=== PATIENT | female | born 1940 | race Caucasian/White ===

== ENCOUNTER → 2017-04-02 | Outpatient (CLI) | payer MEDICARE, BC ==
[~2017-04-02] MED LIST: ALLEGRA; AMLO5 PO; AMLODIPINE; ASCO500 PO; ASPI325 PO; ASPIRIN; CLIN300 PO; COUMADIN; DIAZ5 PO; DIAZEPAM; DONE5 PO; ERGO400 PO; FISH1000 PO; FLUT.05NI; FURO40 PO; LATANOPROST; LEVSOD50; LEVSOD50 PO; LISI20 PO; MECL25 PO; MELA3 PO; MULTIVITAMIN; MULVITMIND PO; NEBI10 PO; OMEP20ER; ONDA4 PO; ONDA4ODT MM; SPIRONOLACTONE; WARF2.5 PO; WARF5 PO; ZOFRAN; Zestril PO; [UNRECOGNIZED DRUG - OTHER]; [UNRECOGNIZED DRUG - REMARK]
[2017-04-04 04:42] LABS: Source ENDOCERV/CERV
== END | disposition home or self-care (01) ==
LOC: LAB 14:30
PROVIDERS: Family Medicine
DX: Z12.4 Encounter for screening for malignant neoplasm of cervix (principal)
CPT/HCPCS: G0145

== ENCOUNTER → 2017-09-15 | Outpatient (CLI) | payer MEDICARE, BC | END | disposition home or self-care (01) | LOC: PLD 14:45 → LAB SHORT 14:45 | DX: L90.0 Lichen sclerosus et atrophicus (principal) | CPT/HCPCS: 88305 ==

== ENCOUNTER → 2018-08-04 | Outpatient (CLI) | payer MEDICARE, BC | END | disposition home or self-care (01) | LOC: LAB 19:32 → LAB SHORT 19:32 | PROVIDERS: Family Medicine | DX: Z12.72 Encounter for screening for malignant neoplasm of vagina (principal); Z90.710 Acquired absence of both cervix and uterus | CPT/HCPCS: G0145 ==

== ENCOUNTER → 2019-10-05 | Outpatient (CLI) | payer MEDICARE, BC ==
[~2019-10-05] MED LIST changes: +ACET325 PO; +ALLEGRA ALLERG180 MG PO; +ASPI81CH PO; +Acerola C500 MG PO; -COUMADIN; +COUMADIN PO; +Coumadin5 MG PO; +DIAZ5; +DONEPEZIL HCL10 MG PO; +EUTHYROX50 MCG PO; +FISH OIL PO; -LEVSOD50; +MEMA10 PO; +MOTION RELIEF25 MG PO; -MULTIVITAMIN; +MULTIVITAMIN PO; +Mupirocin22 GM TOP; +Norvasc2.5 MG PO; +Percocet 5-3251 EACH PO; +SPIR25 PO; +VITAMIN D31000 UNI2 PO; +WARF2.5
== END | disposition home or self-care (01) ==
LOC: LAB 18:48 → LAB SHORT 18:48
PROVIDERS: Family Medicine
DX: Z12.4 Encounter for screening for malignant neoplasm of cervix (principal)
CPT/HCPCS: G0123

== ENCOUNTER 2019-10-12 06:07 | Day surgery (SDC) | payer MEDICARE, BC ==
[~2019-10-12] VITALS: Ht 170.2 cm; Wt 71.4 kg
[~2019-10-12 06:07] MED LIST changes: -Mupirocin22 GM TOP; -Percocet 5-3251 EACH PO
--- NOTE | 2019-10-12 07:16 | NUR ---
History, Chart, Medications and Allergies reviewed before start of procedure. Patient confirms NPO status and agrees with scheduled surgery. Lungs clear T/O to Auscultation. Patient mentions that she filled out a POST with Dr. Oneill about a week ago. She states she is comfortable proceeding with surgery without it on the chart. Offered to have Dr. Hazel return and speak to her about the contents of the POLST, and she states she does not need him to do that.
--- NOTE | 2019-10-12 07:33 | NUR ---
Patient reported using Chlorhexidine shower x5 prior to coming to hospital.
[2019-10-12] MEDS ORDERED: Mupirocin22 GM TOP (07:34)
--- NOTE | 2019-10-12 07:56 | NUR ---
0720- SHAUNA NASAL CLINICAL APPEALS RN X3 AMPULES USED TO BILAT NARES.
--- NOTE | 2019-10-12 11:31 | NUR ---
PT ARRIVED TO UNIT AT APROX 1100 FROM PACU. ABLE TO WIGGLE TOES ON R FOOT, GROSS MVMT IN LLE. DENIES PAIN AT THIS TIME. AQUACEL DRESSING C/D/I.
--- NOTE | 2019-10-12 18:15 | NUR ---
SHIFT SUMMARY PT POD 0 L MARTIN. AQUACEL DRESSING C/D/I ON L HIP, POLAR PACK IN PLACE. PT UP WITH TERAPY AND TO CHAIR. PAIN MANAGED PER EMAR. SALINE LOCKED PT IS TOLERATING PO WITH NO N/V. VOIDING. PLAN TO DC HOME TOMORROW IF PASSES THERAPY.
--- NOTE | 2019-10-13 04:47 | NUR ---
SHIFT SUMMARY POD 1 S/P LEFT MARTIN, AQUACEL DRESSING C/D/I. IS A/OX4 WITH VSS. POLAR PACK, SCD'S AND TEDS IN PLACE. AMB IN ROOM AND HALLWAYS WITH SBA/FWW/GB. VOIDING WITHOUT DIFFICULTY. NUPUR PO INTAKE, DENIES N/V. ABX INFUSED PER ORDERS. PAIN MANAGED WITH PO MEDICATION, TORADOL, AND REPOSITIONING. PT IS CURRENTLY RESTING IN BED WITH CALL LIGHT IN REACH. WILL CONT TO MONITOR AND GIVE REPORT TO ONCOMING RN. PLAN TO WORK WITH THERAPY AND POSSIBLE DISCHARGE TODAY.
[2019-10-13 05:55] LABS: BASOPHILS ABSOLUTE AUTO 0.02 K/mm3 (0.00-0.23); BASOPHILS PERCENT AUTO 0 % (0-2); EOSINOPHILS PERCENT AUTO 0 % (0-6); Hematocrit 28.6 % (33.0-51.0); Hemoglobin 9.4 g/dL (11.5-16.0); IMMATURE GRAN ABSOLUTE AUTO 0.06 K/mm3 (0.00-0.10); IMMATURE GRAN PERCENT AUTO 1 % (0-1); LYMPHOCYTES ABSOLUTE AUTO 1.33 K/mm3 (0.84-5.20); LYMPHOCYTES PERCENT AUTO 12 % (21-46); MONOCYTES PERCENT AUTO 10 % (4-13); Mean Corpuscular HGB Conc 32.9 g/dL (31.5-36.5); Mean Corpuscular Volume 97 fL (80-100); Mean Platelet Volume 9.9 fL (9.1-12.4); NEUTROPHILS ABSOLUTE AUTO 8.92 K/mm3 (1.96-9.15); NEUTROPHILS PERCENT AUTO 78 % (41-73); Platelet Count 155 K/mm3 (150-400); RDW Coefficient Variation 13.1 % (11.7-14.2); Red Blood Cell Count 2.94 M/mm3 (3.80-5.20); White Blood Cell Count 11.43 K/mm3 (4.00-11.30)
[2019-10-13 06:10] LABS: Bun/Creatinine Ratio 29.7 (12.0-20.0); Calcium, Blood 8.3 mg/dL (8.5-10.1); Creatinine, Blood 1.11 mg/dL (0.40-1.00); Potassium, Blood 4.6 mmol/L (3.5-5.5)
[2019-10-13] MEDS ORDERED: Percocet 5-3251 EACH PO (09:13)
--- NOTE | 2019-10-13 10:50 | NUR ---
PHYSICAL THERAPY WORKED WITH PT, REPORTS CLEAR TO GO HOME.
--- NOTE | 2019-10-13 10:55 | NUR ---
PT REPORTS EATING AND DRINKING, VOIDING, PASSING GAS. PT REPORTS NAUSEA DOING BETTER, REPORTS FAMILY STAYING WITH PT. REPORTS HAVING APPR EQUIPMENT AT HOME.
--- NOTE | 2019-10-13 11:07 | NUR ---
DISCHARGE- instructions and medications reviewed with patient and daughter. Questions answered, dressing provided, assisted to car via wc by Fabian GARCIA
--- NOTE | 2019-10-14 13:40 | NUR ---
10/14/19 1340 Sherri Kuo VERIFICATIONS: EDIT CHART.
== END 2019-10-13 11:12 | disposition home or self-care (01) ==
LOC: ORSCMMR 06:07 → PRE IP 07:30 → EDSTATUS 07:30 → SURS 10:46 → ORSCMMR 10-13 11:12
PROVIDERS: Orthopaedic Surgery
PROC: 8E0Y0CZ Robotic Assisted Procedure of Lower Extremity, Open Approach (ICD-10-PCS; 2019-10-12)
PROC: 0SRB0J9 Replacement of Left Hip Joint with Synthetic Substitute, Cemented, Open Approach (ICD-10-PCS; principal; 2019-10-12 07:30)
DX: M16.12 Unilateral primary osteoarthritis, left hip (principal); I10 Essential (primary) hypertension; I48.91 Unspecified atrial fibrillation; Z79.01 Long term (current) use of anticoagulants; I25.10 Atherosclerotic heart disease of native coronary artery without angina pectoris; E03.9 Hypothyroidism, unspecified; Z79.899 Other long term (current) drug therapy
CPT/HCPCS: 27130; S2900; 36415; 72170; 80048; 85025; 88300; 97110; 97116; 97162; 97530; A9270-GY; C1713; C1776; J0171; J0690; J0735; J1100; J1885; J2370; J2405; J2704; J2795; J3010; J7120

== ENCOUNTER → 2019-12-20 | Outpatient (CLI) | payer MEDICARE, BC ==
[~2019-12-20] MED LIST changes: +Mupirocin22 GM TOP; +Percocet 5-3251 EACH PO
== END | disposition home or self-care (01) ==
LOC: PLD 07:35 → LAB SHORT 07:35
DX: L01.02 Bockhart's impetigo (principal)
CPT/HCPCS: 88305

== ENCOUNTER → 2020-08-07 | Outpatient (CLI) | payer MEDICARE, BC ==
[~2020-08-07] MED LIST changes: +SULFAMETHOXAZO1 EAC1 PO
== END | disposition home or self-care (01) ==
LOC: LAB 17:00 → LAB SHORT 17:00
DX: N39.0 Urinary tract infection, site not specified (principal)
CPT/HCPCS: 87086

== ENCOUNTER 2020-09-30 08:42 | Emergency (ER) | payer MEDICARE, BC ==
[~2020-09-30] VITALS: Ht 170.2 cm; Wt 68.5 kg
[~2020-09-30 08:42] MED LIST changes: -SULFAMETHOXAZO1 EAC1 PO
[2020-09-30] MEDS ORDERED: SULFAMETHOXAZO1 EAC1 PO (08:57)
[2020-09-30 09:00] LABS: BASOPHILS ABSOLUTE AUTO 0.03 K/mm3 (0.00-0.23); BASOPHILS PERCENT AUTO 1 % (0-2); EOSINOPHILS ABSOLUTE AUTO 0.05 K/mm3 (0.00-0.68); EOSINOPHILS PERCENT AUTO 1 % (0-6); Hematocrit 40.4 % (33.0-51.0); Hemoglobin 13.4 g/dL (11.5-16.0); IMMATURE GRAN ABSOLUTE AUTO 0.01 K/mm3 (0.00-0.10); IMMATURE GRAN PERCENT AUTO 0 % (0-1); LYMPHOCYTES ABSOLUTE AUTO 1.21 K/mm3 (0.84-5.20); LYMPHOCYTES PERCENT AUTO 21 % (21-46); MONOCYTES ABSOLUTE AUTO 0.42 K/mm3 (0.16-1.47); MONOCYTES PERCENT AUTO 7 % (4-13); Mean Corpuscular HGB 32.1 pg (26.0-34.0); Mean Corpuscular HGB Conc 33.2 g/dL (31.5-36.5); Mean Corpuscular Volume 97 fL (80-100); Mean Platelet Volume 9.9 fL (9.1-12.4); NEUTROPHILS ABSOLUTE AUTO 4.12 K/mm3 (1.96-9.15); NEUTROPHILS PERCENT AUTO 71 % (41-73); Platelet Count 209 K/mm3 (150-400); RDW Coefficient Variation 13.3 % (11.7-14.2); RDW Standard Deviation 48.1 fL (35.1-46.3); Red Blood Cell Count 4.17 M/mm3 (3.80-5.20); White Blood Cell Count 5.84 K/mm3 (4.00-11.30)
[2020-09-30 09:17] LABS: Albumin, Blood 3.6 g/dL (3.4-5.0); Bilirubin, Total 0.2 mg/dL (0.1-1.0); Bun/Creatinine Ratio 24.6 (12.0-20.0); Calcium, Blood 8.8 mg/dL (8.5-10.1); Creatinine, Blood 1.34 mg/dL (0.40-1.00); Globulin, Blood 3.7 g/dL (2.2-4.0); Potassium, Blood 4.5 mmol/L (3.5-5.5); Total Protein, Blood 7.3 g/dL (6.4-8.2)
[2020-09-30 09:43] LABS: Source, Urine Clean Catch
[2020-09-30 09:50] LABS: Appearance, Urine Clear (Clear); Bilirubin, Urine Neg (Neg); Blood, Urine Neg (Neg); Color, Urine Yellow (P-Yellow); Glucose Qualitative, Urine 2+ (Neg); Ketones, Urine Neg (Neg); Leukocyte Esterase, Urine Neg (Neg); Nitrite, Urine Neg (Neg); Protein, Urine 1+ (Neg); Urobilinogen, Urine NORM (Normal)
[2020-09-30] MEDS ORDERED: ONDA4ODT MM (10:57)
== END 2020-09-30 11:05 | disposition home or self-care (01) ==
LOC: ER 08:42
PROVIDERS: Emergency Medicine
DX: R42 Dizziness and giddiness (principal); Z79.01 Long term (current) use of anticoagulants; Z88.5 Allergy status to narcotic agent; Z91.09 Other allergy status, other than to drugs and biological substances; Z88.1 Allergy status to other antibiotic agents; Z79.899 Other long term (current) drug therapy
CPT/HCPCS: 36415; 80053; 85025; 93005; 93010; 96374; 99284-25; A9270; J2405; J7030

== ENCOUNTER → 2020-10-11 | Outpatient (CLI) | payer MEDICARE, BC ==
[~2020-10-11] MED LIST changes: +SULFAMETHOXAZO1 EAC1 PO
== END | disposition home or self-care (01) ==
LOC: LAB SHORT 16:10 → LAB 16:10
DX: N39.0 Urinary tract infection, site not specified (principal)
CPT/HCPCS: 87077; 87086; 87186

== ENCOUNTER → 2020-10-27 | Outpatient (CLI) | payer MEDICARE, BC ==
[2020-10-27 18:55] LABS: Appearance, Urine Clear (Clear); Bilirubin, Urine Neg (Neg); Blood, Urine Neg (Neg); Color, Urine Yellow (P-Yellow); Glucose Qualitative, Urine Neg (Neg); Ketones, Urine Neg (Neg); Leukocyte Esterase, Urine 1+ (Neg); Nitrite, Urine Neg (Neg); Protein, Urine 2+ (Neg); Urobilinogen, Urine NORM (Normal)
[2020-10-27 19:18] LABS: Bacteria Mod /hpf; Red Blood Cells, Urine Not Seen /hpf (0-2); Squamous Epithelial Cells Few /hpf (Few)
== END ==
LOC: LAB 17:45 → LAB SHORT 17:45
PROVIDERS: Family Medicine
DX: N39.0 Urinary tract infection, site not specified (principal); Z88.6 Allergy status to analgesic agent; Z88.5 Allergy status to narcotic agent; Z88.1 Allergy status to other antibiotic agents; Z91.048 Other nonmedicinal substance allergy status; Z88.8 Allergy status to other drugs, medicaments and biological substances
CPT/HCPCS: 81001; 87086

== ENCOUNTER → 2020-10-30 | Outpatient (CLI) | payer MEDICARE, BC ==
[2020-10-30 12:00] LABS: Bilirubin, Urine Neg (Neg); Blood, Urine Neg (Neg); Glucose Qualitative, Urine Neg (Neg); Ketones, Urine Neg (Neg); Leukocyte Esterase, Urine Neg (Neg); Nitrite, Urine Neg (Neg); Protein, Urine Neg (Neg); Urobilinogen, Urine NORM (Normal)
[2020-10-30 12:26] LABS: Appearance, Urine Clear (Clear); Color, Urine Yellow (P-Yellow)
== END | disposition home or self-care (01) ==
LOC: LAB 09:35 → LAB SHORT 09:35
PROVIDERS: Family Medicine
DX: N39.0 Urinary tract infection, site not specified (principal)
CPT/HCPCS: 81003

== ENCOUNTER 2021-04-02 03:10 | Observation (INO) | payer MEDICARE, BC ==
[~2021-04-02] VITALS: Ht 170.2 cm; Wt 71.9 kg
[~2021-04-02 03:10] MED LIST changes: -ASPI81CH PO; +ASPIR 8181 M1 PO; -Norvasc2.5 MG PO
[2021-04-02 03:34] LABS: BASOPHILS ABSOLUTE AUTO 0.04 K/mm3 (0.00-0.23); BASOPHILS PERCENT AUTO 1 % (0-2); EOSINOPHILS ABSOLUTE AUTO 0.15 K/mm3 (0.00-0.68); EOSINOPHILS PERCENT AUTO 2 % (0-6); Hematocrit 40.4 % (33.0-51.0); Hemoglobin 13.6 g/dL (11.5-16.0); IMMATURE GRAN ABSOLUTE AUTO 0.02 K/mm3 (0.00-0.10); IMMATURE GRAN PERCENT AUTO 0 % (0-1); LYMPHOCYTES ABSOLUTE AUTO 2.66 K/mm3 (0.84-5.20); LYMPHOCYTES PERCENT AUTO 40 % (21-46); MONOCYTES ABSOLUTE AUTO 0.71 K/mm3 (0.16-1.47); MONOCYTES PERCENT AUTO 11 % (4-13); Mean Corpuscular HGB 31.8 pg (26.0-34.0); Mean Corpuscular HGB Conc 33.7 g/dL (31.5-36.5); Mean Corpuscular Volume 94 fL (80-100); Mean Platelet Volume 10.2 fL (9.1-12.4); NEUTROPHILS ABSOLUTE AUTO 3.04 K/mm3 (1.96-9.15); NEUTROPHILS PERCENT AUTO 46 % (41-73); Platelet Count 222 K/mm3 (150-400); RDW Coefficient Variation 12.9 % (11.7-14.2); RDW Standard Deviation 44.7 fL (35.1-46.3); Red Blood Cell Count 4.28 M/mm3 (3.80-5.20); White Blood Cell Count 6.62 K/mm3 (4.00-11.30)
[2021-04-02 03:57] LABS: Alanine Aminotransfer (ALT/SGP 26 U/L (12-78); Albumin, Blood 3.6 g/dL (3.4-5.0); Albumin/Globulin Ratio 0.9 (0.8-1.8); Alk Phos 83 U/L (50-136); Anion Gap 3 mmol/L (6-16); Aspartate Aminotrans (AST/SGOT 16 U/L (12-37); Bilirubin, Total 0.5 mg/dL (0.1-1.0); Blood Urea Nitrogen 23 mg/dL (8-24); Bun/Creatinine Ratio 24.9 (12.0-20.0); CO2, Blood 29 mmol/L (21-32); Calcium, Blood 9.1 mg/dL (8.5-10.1); Chloride, Blood 109 mmol/L (98-108); Creatinine, Blood 0.92 mg/dL (0.40-1.00); Globulin, Blood 3.8 g/dL (2.2-4.0); Glomerular Filtration Rate 58 (60-); Glucose, Blood 104 mg/dL (70-99); Potassium, Blood 4.1 mmol/L (3.5-5.5); Sodium, Blood 141 mmol/L (136-145); Total Protein, Blood 7.4 g/dL (6.4-8.2); Troponin I <0.015 ng/mL (0.000-0.040)
[2021-04-02 04:18] LABS: International Normalized Ratio 1.97; Prothrombin Time Results 19.8 Sec (9.7-11.5)
[2021-04-02 07:06] LABS: Source, Urine Clean Catch
[2021-04-02 07:13] LABS: Appearance, Urine Clear (Clear); Bilirubin, Urine Neg (Neg); Blood, Urine Neg (Neg); Color, Urine Yellow (P-Yellow); Glucose Qualitative, Urine Neg (Neg); Ketones, Urine Neg (Neg); Leukocyte Esterase, Urine Neg (Neg); Nitrite, Urine Neg (Neg); Protein, Urine Neg (Neg); Urobilinogen, Urine NORM (Normal)
[2021-04-02 11:52] LABS: CPK Creatine Kinase 96 U/L (26-193); Troponin I <0.015 ng/mL (0.000-0.040)
[2021-04-02] MEDS ORDERED: LATANOPROST 0.7.5 M3 BOTHEYES (14:42)
[2021-04-02] MEDS ORDERED: OMEP20ER PO (14:42)
[2021-04-02] MEDS ORDERED: TIMO.5OPSO BOTHEYES (14:45)
--- NOTE | 2021-04-02 14:45 | NUR ---
ADMIT PT ORIENTED TO ROOM. CALL LIGHT IN REACH. CHAIR ALARM PLACED UNDER PT WHILE UP IN CHAIR. TELE IN PLACE. WATER PROVIDED. PT DENIES NEEDS AT THIS TIME. DR. PETTY NOTIFIED OF 07/08 CHEST PAIN.
[2021-04-02] MEDS ORDERED: OMEGA-3 FISH O1 EAC6 PO (14:46)
[2021-04-02] MEDS ORDERED: Vitamin B Comple1 EA PO (14:47)
[2021-04-02] MEDS ORDERED: CENTRUM SILVER1 EAC2 PO (14:49)
[2021-04-02] MEDS ORDERED: MELO7.5 PO (14:49)
--- NOTE | 2021-04-02 16:53 | NUR ---
SHIFT SUMARY DNR BAND PLACED TO L WRIST. VERIFIED WITH DELMI Branch RN. TELE RUNNING AFIB WITH PVC'S. RATE IN THE MID 40S TO MID 50S. DR. PETTY NOTIFIED OF BRADYCARDIA AND PARMAETERS WERE ADDED TO COREG ORDER. PT RESTING IN BED. CALL LIGHT IN REACH. DENIES ANY NEEDS AT THIS TIME. CALL LIGHT IN REACH. NO OTHER CHANGES IN ASSESSMENT SINCE ADMIT.
[2021-04-02 19:30] LABS: CPK Creatine Kinase 92 U/L (26-193); Troponin I <0.015 ng/mL (0.000-0.040)
--- NOTE | 2021-04-03 00:08 | NUR ---
PER NEEDLE BOARD REPAIRER THE PATIENTS HR WENT DOWN TO 37 BPM THE REBOUNDED BACK TO THE HIGH 40'S. WENT IN TO ASSESS THE PATIENT SHE AWAKEN EASILY AND IS ORIENTED. REPORTS NO PAIN OR SOA. WILL CONTINUE TO MONITOR.
--- NOTE | 2021-04-03 05:36 | NUR ---
PATIENT HAS HAD AN UNEVENTFUL NIGHT. SHE SELF AMBUALATED TO THE RESTROOM TWICE. PER TELEMETRY THE PATIENT HAD THREE TIMES WHEN SHE WAS MAGAN @37 THEN CAME BACK UP. pATIENT WAS CHECKED ON AND WAS EASY TO AROUSE AND ALERT. PATIENT HAS BEEN NPO SINCE MIDNIGHT. PATIENT IS ALERT AND ORIENTED ABLE TO MAKE NEEDS KNOW. VERBALIZED NO QUESTIONS OR CONCERNS. VITALS TEVIEWED. CALL LIGHT IN REACH.
[2021-04-03 06:07] LABS: Magnesium, Blood 2.2 mg/dL (1.6-2.4)
[2021-04-03 06:08] LABS: Albumin, Blood 3.3 g/dL (3.4-5.0); Albumin/Globulin Ratio 0.8 (0.8-1.8); Bilirubin, Total 0.6 mg/dL (0.1-1.0); Bun/Creatinine Ratio 25.1 (12.0-20.0); Calcium, Blood 9.2 mg/dL (8.5-10.1); Creatinine, Blood 0.96 mg/dL (0.40-1.00); Globulin, Blood 3.9 g/dL (2.2-4.0); Potassium, Blood 4.5 mmol/L (3.5-5.5); Total Protein, Blood 7.2 g/dL (6.4-8.2)
[2021-04-03 06:14] LABS: BASOPHILS ABSOLUTE AUTO 0.04 K/mm3 (0.00-0.23); BASOPHILS PERCENT AUTO 1 % (0-2); EOSINOPHILS ABSOLUTE AUTO 0.15 K/mm3 (0.00-0.68); EOSINOPHILS PERCENT AUTO 3 % (0-6); Hematocrit 44.6 % (33.0-51.0); Hemoglobin 14.9 g/dL (11.5-16.0); IMMATURE GRAN ABSOLUTE AUTO 0.02 K/mm3 (0.00-0.10); IMMATURE GRAN PERCENT AUTO 0 % (0-1); LYMPHOCYTES ABSOLUTE AUTO 2.28 K/mm3 (0.84-5.20); LYMPHOCYTES PERCENT AUTO 38 % (21-46); MONOCYTES PERCENT AUTO 10 % (4-13); Mean Corpuscular HGB 31.4 pg (26.0-34.0); Mean Corpuscular HGB Conc 33.4 g/dL (31.5-36.5); Mean Corpuscular Volume 94 fL (80-100); Mean Platelet Volume 10.4 fL (9.1-12.4); NEUTROPHILS ABSOLUTE AUTO 2.93 K/mm3 (1.96-9.15); NEUTROPHILS PERCENT AUTO 49 % (41-73); Platelet Count 171 K/mm3 (150-400); RDW Coefficient Variation 12.9 % (11.7-14.2); RDW Standard Deviation 44.8 fL (35.1-46.3); Red Blood Cell Count 4.75 M/mm3 (3.80-5.20); White Blood Cell Count 6.02 K/mm3 (4.00-11.30)
[2021-04-03 06:40] LABS: International Normalized Ratio 1.98; Prothrombin Time Results 19.9 Sec (9.7-11.5)
--- NOTE | 2021-04-03 16:37 | NUR ---
SHIFT SUMMARY PT IS AOX4. PT DENIES PAIN, N/V, SOB. PT HAD RESTING PORTION OF STRESS TEST TODAY AND PART TWO WILL BE TOMORROW. PT APPETITE IS GOOD. PT DENIES CP. PT DID NOT HAVE VISITORS THIS SHIFT. PT REMAINS INDEPENDENT IN ROOM. PT IS IN BED, CALL LIGHT IN REACH, LOW POSITION.
--- NOTE | 2021-04-04 05:14 | NUR ---
PATIENT FINALLY WAS ABLE TO SETTLE DOWN AND REST AFTER BEING CONCERNED OVER DC PLAN. Q2 HR TURNS AND CHANGES COMPLETED. PATIENT A&O AND MAKES NEEDS KNOWN. VITALS REVIEWED. CALL LIGHT IN REACH,
--- NOTE | 2021-04-04 05:20 | NUR ---
PATIENT HAD AN UNEVENTFUL NIGHT. NO REPORTS OF CHEST PAIN OR DISCOMFORT. ABULATED INDEPENDENTLY TO THE RESTROOM OVER NIGHT. TELEMETRY IN PLACE PT HAS BEEN AFIB IN 50-60'S. NPO SINCE MIDNIGHT FOR STRESS TEST THIS AM. VITALS REVIEWED. CALL LIGHT IN REACH.
[2021-04-04 05:23] LABS: BASOPHILS ABSOLUTE AUTO 0.04 K/mm3 (0.00-0.23); BASOPHILS PERCENT AUTO 1 % (0-2); EOSINOPHILS ABSOLUTE AUTO 0.21 K/mm3 (0.00-0.68); EOSINOPHILS PERCENT AUTO 4 % (0-6); Hemoglobin 13.3 g/dL (11.5-16.0); IMMATURE GRAN ABSOLUTE AUTO 0.01 K/mm3 (0.00-0.10); IMMATURE GRAN PERCENT AUTO 0 % (0-1); LYMPHOCYTES ABSOLUTE AUTO 2.26 K/mm3 (0.84-5.20); LYMPHOCYTES PERCENT AUTO 38 % (21-46); MONOCYTES PERCENT AUTO 12 % (4-13); Mean Corpuscular HGB 31.1 pg (26.0-34.0); Mean Corpuscular HGB Conc 33.3 g/dL (31.5-36.5); Mean Corpuscular Volume 94 fL (80-100); NEUTROPHILS ABSOLUTE AUTO 2.77 K/mm3 (1.96-9.15); NEUTROPHILS PERCENT AUTO 46 % (41-73); Platelet Count 205 K/mm3 (150-400); RDW Coefficient Variation 12.8 % (11.7-14.2); Red Blood Cell Count 4.27 M/mm3 (3.80-5.20); White Blood Cell Count 5.99 K/mm3 (4.00-11.30)
[2021-04-04 05:44] LABS: International Normalized Ratio 2.1
[2021-04-04 05:56] LABS: Albumin, Blood 3.1 g/dL (3.4-5.0); Anion Gap 5 mmol/L (6-16); Blood Urea Nitrogen 27 mg/dL (8-24); Bun/Creatinine Ratio 31.7 (12.0-20.0); CO2, Blood 26 mmol/L (21-32); Calcium, Blood 9.1 mg/dL (8.5-10.1); Chloride, Blood 109 mmol/L (98-108); Creatinine, Blood 0.85 mg/dL (0.40-1.00); Glomerular Filtration Rate >60 (60-); Glucose, Blood 94 mg/dL (70-99); Phosphorus, Blood 3.7 mg/dL (2.5-4.9); Potassium, Blood 4.5 mmol/L (3.5-5.5); Sodium, Blood 140 mmol/L (136-145)
[2021-04-04] MEDS ORDERED: NITR.4SL SL (15:23)
--- NOTE | 2021-04-04 15:43 | NUR ---
Per Chart Review with Dr. Barros, patient appropriate for discharge home to [facility]. Patient feels safe to discharge home and denies barriers. A hospital follow up is scheduled for tomorrow with Dr. Rivera. Patient aware of appointment date and time. Patient's son to provide discharge transport back to [facility]. Patient's discharge order and discharge med rec faxed to [facility]'s RN Jeanne Short.
--- NOTE | 2021-04-04 16:52 | NUR ---
DISCHARGE NOTE PT IS AOX4. PT DRESSED SELF IN HOME CLOTHING AND GATHERED BELONGINGS FROM ROOM. DC INSTRUCTIONS AND MEDICATIONS REVIEWED WITH PT WHO VERBALIZED UNDERSTANDING. [facility] TO CALL PT FOR FOLLOW-UP APPOINTMENT. PT HAS CARDIOLOGY APPOINTMENT SCHEDULED FOR 05/03/21 @8AM WITH CARDIOLOGY OFFICE ATTEMPTING TO SCHEDULE EARLIER APPOINTMENT. PT WALKED OFF UNIT WITH SON. PAPERWORK SENT WITH PT TO GIVE TO [facility] STAFF INCLUDING MEDICATIONS AND DC INSTRUCTIONS. PT LEFT TO PRIVATE VEHICLE WITH FAMILY AND BELONGINGS PRESENT.
== END 2021-04-04 16:40 | disposition home or self-care (01) ==
LOC: ER 03:10 → ERHOLD 03:11 → MEDS 14:21
PROVIDERS: Emergency Medicine; Family Medicine; Hospitalist; ADMIT Internal Medicine
DX: R07.9 Chest pain, unspecified (principal); I48.20 Chronic atrial fibrillation, unspecified; I11.9 Hypertensive heart disease without heart failure; E03.9 Hypothyroidism, unspecified; N39.0 Urinary tract infection, site not specified; N28.1 Cyst of kidney, acquired; H40.9 Unspecified glaucoma; R06.00 Dyspnea, unspecified; I34.0 Nonrheumatic mitral (valve) insufficiency; I49.3 Ventricular premature depolarization; Z79.01 Long term (current) use of anticoagulants; Z88.5 Allergy status to narcotic agent; Z88.8 Allergy status to other drugs, medicaments and biological substances; Z91.09 Other allergy status, other than to drugs and biological substances; Z90.3 Acquired absence of stomach [part of]
CPT/HCPCS: 36415; 71045; 76770; 78452; 80053; 80069; 81003; 82550; 83735; 83880; 84484; 85025; 85610; 85730; 93005; 93010; 93017; 93308; 94760; 96372; 99285; A9270; A9500; G0378; J0706; J1650; J2785; J7030

== ENCOUNTER → 2021-04-05 | Outpatient (CLI) | payer MEDICARE, BC ==
[~2021-04-05] MED LIST changes: +CENTRUM SILVER1 EAC2 PO; +LATANOPROST 0.7.5 M3 BOTHEYES; +MELO7.5 PO; +NITR.4SL SL; +OMEGA-3 FISH O1 EAC6 PO; +OMEP20ER PO; +TIMO.5OPSO BOTHEYES; +Vitamin B Comple1 EA PO
[2021-04-05 13:22] LABS: Appearance, Urine Hazy (Clear); Bilirubin, Urine Neg (Neg); Blood, Urine 1+ (Neg); Color, Urine Yellow (P-Yellow); Glucose Qualitative, Urine Neg (Neg); Ketones, Urine Neg (Neg); Leukocyte Esterase, Urine 2+ (Neg); Nitrite, Urine Neg (Neg); Protein, Urine 3+ (Neg); Specific Gravity, Urine 1.025 (1.003-1.022); Urobilinogen, Urine NORM (Normal)
[2021-04-05 13:43] LABS: Bacteria Few /hpf; Mucus Heavy (0-Heavy); Squamous Epithelial Cells Few /hpf (Few)
[2021-04-05 13:44] LABS: Granular Casts 0-2 /lpf (0); Hyaline Casts 0-2 /lpf (0-2)
== END | disposition home or self-care (01) ==
LOC: LAB SHORT 11:40
PROVIDERS: Family Medicine
DX: N39.0 Urinary tract infection, site not specified (principal)
CPT/HCPCS: 81001; 87086

== ENCOUNTER 2021-04-18 09:17 | Inpatient (IN) | payer MEDICARE, BC ==
[~2021-04-18] VITALS: Ht 170.2 cm; Wt 69.0 kg
[~2021-04-18 09:17] MED LIST changes: +VITAMIN D31000 UNI1 PO; -VITAMIN D31000 UNI2 PO
[2021-04-18 09:45] LABS: BASOPHILS ABSOLUTE AUTO 0.03 K/mm3 (0.00-0.23); BASOPHILS PERCENT AUTO 1 % (0-2); EOSINOPHILS ABSOLUTE AUTO 0.12 K/mm3 (0.00-0.68); EOSINOPHILS PERCENT AUTO 2 % (0-6); Hematocrit 42.6 % (33.0-51.0); Hemoglobin 14.1 g/dL (11.5-16.0); IMMATURE GRAN ABSOLUTE AUTO 0.01 K/mm3 (0.00-0.10); IMMATURE GRAN PERCENT AUTO 0 % (0-1); LYMPHOCYTES ABSOLUTE AUTO 1.83 K/mm3 (0.84-5.20); LYMPHOCYTES PERCENT AUTO 32 % (21-46); MONOCYTES ABSOLUTE AUTO 0.62 K/mm3 (0.16-1.47); MONOCYTES PERCENT AUTO 11 % (4-13); Mean Corpuscular HGB 31.3 pg (26.0-34.0); Mean Corpuscular HGB Conc 33.1 g/dL (31.5-36.5); Mean Corpuscular Volume 95 fL (80-100); Mean Platelet Volume 10.2 fL (9.1-12.4); NEUTROPHILS PERCENT AUTO 54 % (41-73); Platelet Count 244 K/mm3 (150-400); RDW Coefficient Variation 12.7 % (11.7-14.2); Red Blood Cell Count 4.51 M/mm3 (3.80-5.20); White Blood Cell Count 5.71 K/mm3 (4.00-11.30)
[2021-04-18 10:06] LABS: Alanine Aminotransfer (ALT/SGP 25 U/L (12-78); Albumin, Blood 3.7 g/dL (3.4-5.0); Alk Phos 80 U/L (50-136); Anion Gap 2 mmol/L (6-16); Aspartate Aminotrans (AST/SGOT 17 U/L (12-37); Bilirubin, Total 0.5 mg/dL (0.1-1.0); Blood Urea Nitrogen 22 mg/dL (8-24); Bun/Creatinine Ratio 25.3 (12.0-20.0); CO2, Blood 31 mmol/L (21-32); Calcium, Blood 9.4 mg/dL (8.5-10.1); Chloride, Blood 106 mmol/L (98-108); Creatinine, Blood 0.87 mg/dL (0.40-1.00); Globulin, Blood 3.8 g/dL (2.2-4.0); Glomerular Filtration Rate >60 (60-); Glucose, Blood 86 mg/dL (70-99); Potassium, Blood 4.1 mmol/L (3.5-5.5); Sodium, Blood 139 mmol/L (136-145); Total Protein, Blood 7.5 g/dL (6.4-8.2); Troponin I <0.015 ng/mL (0.000-0.040)
[2021-04-18 11:17] LABS: International Normalized Ratio 2.21
--- NOTE | 2021-04-18 18:20 | NUR ---
SHIFT SUMMARY PT IS RESTING COMFORTABLE IN BED. SHE HAS COMPLAINED OF MILD CHEST PAIN WHILE LAYING DOWN THAT COMES IN "SPURTS" AND THE PAIN INCREASES WHEN SHE MOVED TO THE BATHROOM. SHE IS VERY ALERT AND WAS ABLE TO TELL ME TO TOOK HER MEDICATION THIS MONRING AND DID NOT NEED TO TAKE A REPEAT DOSE TODAY. SHE HAS BEEN READING AND DOING PUZZLES IN HER ROOM WAITING TO HEAR ABOUT A POSSIBLE CARDIAC PROCEDURE. CONTINOUS HEPARIN INITIATED. PT IS TOLERATING. WILL CONTINUE TO MONITOR.
--- NOTE | 2021-04-18 22:57 | NUR ---
Tele called stating patient was in the low 40's Pasquale. I spoke with Dr. Cifuentes to inform her of this. She asked for an EKG, which charge nurse (Kim) is performing at this time.
--- NOTE | 2021-04-18 23:32 | NUR ---
NEWS EKG RESULTS ARE UNCHANGED FROM PREVIOUS 2 TAKEN DOWN IN THE ED. CHARGE NURSE AWARE.
[2021-04-19 04:48] LABS: BASOPHILS ABSOLUTE AUTO 0.04 K/mm3 (0.00-0.23); BASOPHILS PERCENT AUTO 1 % (0-2); EOSINOPHILS ABSOLUTE AUTO 0.15 K/mm3 (0.00-0.68); EOSINOPHILS PERCENT AUTO 2 % (0-6); Hematocrit 39.8 % (33.0-51.0); Hemoglobin 13.1 g/dL (11.5-16.0); IMMATURE GRAN ABSOLUTE AUTO 0.02 K/mm3 (0.00-0.10); IMMATURE GRAN PERCENT AUTO 0 % (0-1); LYMPHOCYTES ABSOLUTE AUTO 2.72 K/mm3 (0.84-5.20); LYMPHOCYTES PERCENT AUTO 42 % (21-46); MONOCYTES ABSOLUTE AUTO 0.64 K/mm3 (0.16-1.47); MONOCYTES PERCENT AUTO 10 % (4-13); Mean Corpuscular HGB Conc 32.9 g/dL (31.5-36.5); Mean Corpuscular Volume 94 fL (80-100); Mean Platelet Volume 10.5 fL (9.1-12.4); NEUTROPHILS ABSOLUTE AUTO 2.86 K/mm3 (1.96-9.15); NEUTROPHILS PERCENT AUTO 45 % (41-73); Platelet Count 211 K/mm3 (150-400); RDW Coefficient Variation 12.8 % (11.7-14.2); RDW Standard Deviation 44.2 fL (35.1-46.3); Red Blood Cell Count 4.23 M/mm3 (3.80-5.20); White Blood Cell Count 6.43 K/mm3 (4.00-11.30)
--- NOTE | 2021-04-19 05:02 | NUR ---
PATIENT HAD SOME COMPLAINTS OF CHEST PAIN THIS EVENING. SHE WAS GIVEN NITRO X 3, WHICH DID NOT HELP HER. SHE THEN TRIED FENTANYL, WHICH DID WORK FOR HER TO RESOLVED THE ISSUE. TELE CALLED STATING SHE WAS MAGAN IN THE LOW 40'S. WE DID AN EKG PER DR. MONTE AND IT DID NOT SHOW ANYTHING NEW COMPARED TO PREVIOUS 2 TAKEN IN ED. TOLERATING HEPARIN DRIP AT 15 U/KG/HR. NO COMPLAINTS AT THIS TIME.
[2021-04-19 05:59] LABS: Magnesium, Blood 2.4 mg/dL (1.6-2.4)
[2021-04-19 06:01] LABS: Albumin, Blood 3.3 g/dL (3.4-5.0); Anion Gap 10 mmol/L (6-16); Blood Urea Nitrogen 27 mg/dL (8-24); Bun/Creatinine Ratio 28.2 (12.0-20.0); CO2, Blood 24 mmol/L (21-32); Calcium, Blood 8.8 mg/dL (8.5-10.1); Chloride, Blood 107 mmol/L (98-108); Creatinine, Blood 0.96 mg/dL (0.40-1.00); Glomerular Filtration Rate 56 (60-); Glucose, Blood 91 mg/dL (70-99); Phosphorus, Blood 3.6 mg/dL (2.5-4.9); Potassium, Blood 4.3 mmol/L (3.5-5.5); Sodium, Blood 141 mmol/L (136-145)
--- NOTE | 2021-04-19 16:45 | NUR ---
DAY SHIFT SUMMARY 81 YR OLD, PLEASANT FEMALE WITH UNSTABLE ANGINA. PT ON RA. TELE REPORTS AFIB AT 50. PT INDEPENDENT IN ROOM, A/O X4. SOB WITH EXERTION. HEPARIN DRIP RUNNING AT 11 UNITS/KG/HR. CALL LIGHT WITHIN REACH, PT ABLE TO CALL APPROPRIATELY.
[2021-04-19] MEDS ORDERED: NEBI10 PO (17:03)
[2021-04-19] MEDS ORDERED: ISOSORBIDE MONO30 MG PO (17:04)
--- NOTE | 2021-04-20 02:44 | NUR ---
ASSISTANT PROFESSOR OF CHEMISTRY SUMMARY PATIENT IS ALERT AND ORIENTED. SHE STATED SHE HAS ARTHRITIS PAIN AND CHEST PAIN. SHE GOT PRN PAIN PILL SEE EMAR. HER VITALS ARE STABLE. SHE IS STILL ON HEPARIN DRIP. WILL CONTINUE TO MONITOR HER NO OTHER COMPLAINTS.
[2021-04-20 04:30] LABS: BASOPHILS ABSOLUTE AUTO 0.04 K/mm3 (0.00-0.23); BASOPHILS PERCENT AUTO 1 % (0-2); EOSINOPHILS ABSOLUTE AUTO 0.17 K/mm3 (0.00-0.68); EOSINOPHILS PERCENT AUTO 3 % (0-6); Hematocrit 39.6 % (33.0-51.0); Hemoglobin 13.2 g/dL (11.5-16.0); IMMATURE GRAN ABSOLUTE AUTO 0.01 K/mm3 (0.00-0.10); IMMATURE GRAN PERCENT AUTO 0 % (0-1); LYMPHOCYTES ABSOLUTE AUTO 2.51 K/mm3 (0.84-5.20); LYMPHOCYTES PERCENT AUTO 44 % (21-46); MONOCYTES ABSOLUTE AUTO 0.63 K/mm3 (0.16-1.47); MONOCYTES PERCENT AUTO 11 % (4-13); Mean Corpuscular HGB 31.3 pg (26.0-34.0); Mean Corpuscular HGB Conc 33.3 g/dL (31.5-36.5); Mean Corpuscular Volume 94 fL (80-100); NEUTROPHILS ABSOLUTE AUTO 2.39 K/mm3 (1.96-9.15); NEUTROPHILS PERCENT AUTO 41 % (41-73); Platelet Count 206 K/mm3 (150-400); RDW Coefficient Variation 12.7 % (11.7-14.2); RDW Standard Deviation 43.9 fL (35.1-46.3); Red Blood Cell Count 4.22 M/mm3 (3.80-5.20); White Blood Cell Count 5.75 K/mm3 (4.00-11.30)
[2021-04-20 04:58] LABS: International Normalized Ratio 1.75; Prothrombin Time Results 17.7 Sec (9.7-11.5)
[2021-04-20 05:28] LABS: Albumin, Blood 3.4 g/dL (3.4-5.0); Anion Gap 7 mmol/L (6-16); Blood Urea Nitrogen 27 mg/dL (8-24); CO2, Blood 27 mmol/L (21-32); Calcium, Blood 9.1 mg/dL (8.5-10.1); Chloride, Blood 105 mmol/L (98-108); Creatinine, Blood 1.04 mg/dL (0.40-1.00); Glomerular Filtration Rate 51 (60-); Glucose, Blood 97 mg/dL (70-99); Magnesium, Blood 2.4 mg/dL (1.6-2.4); Phosphorus, Blood 3.4 mg/dL (2.5-4.9); Potassium, Blood 4.3 mmol/L (3.5-5.5); Sodium, Blood 139 mmol/L (136-145)
[2021-04-20 11:27] LABS: Influenza A, PCR NEGATIVE (NEGATIVE); Influenza B, PCR NEGATIVE (NEGATIVE); Resp Syncytial Virus, PCR NEGATIVE (NEGATIVE); SARS-Cov-2 (COVID-19) PCR, MMC NEGATIVE (NEGATIVE)
--- NOTE | 2021-04-20 13:33 | NUR ---
I went to visit the patient in her [facility] room yesterday morning. She was sitting upright in her bed, alert, and pleasant. She states she has been experiencing significant chest pain and hope to consult with cardiology as soon as possible. She had been awaiting her outpatient cardiology appointment this coming Friday, but had been advised to call 911 by the [place] [facility] due to the chest pain. Patient lives at [facility] and is mostly independent. She is in frequent contact with her son, who provides transportation when needed.
[2021-04-20 14:54] LABS: Source, Urine Foley catheter
[2021-04-20 15:06] LABS: Appearance, Urine Clear (Clear); Bilirubin, Urine Neg (Neg); Blood, Urine Neg (Neg); Color, Urine Yellow (P-Yellow); Glucose Qualitative, Urine Neg (Neg); Ketones, Urine Neg (Neg); Leukocyte Esterase, Urine Neg (Neg); Nitrite, Urine Neg (Neg); Protein, Urine 1+ (Neg); Specific Gravity, Urine 1.005 (1.003-1.022); Urobilinogen, Urine NORM (Normal); pH, Urine 6.5 (5.0-8.0)
--- NOTE | 2021-04-20 17:14 | NUR ---
PT TRANSPORTED TO AIRFLIGHT ATTENDANTS SUPERVISOR FOR ANGIOGRAM. PT TO BE TRANSPORTED AFTER TO PCU. REPORT GIVEN TO PCU NURSE FOR TRANSFER OF PT. ALL PERSONAL BELONGINGS GATHERED AND TAKEN TO PCU ROOM. SUMMARY OF SHIFT UP TO TRANSFER: HEPARIN DRIP OF 8 UNITS/KG/HR = 11ML/HR STOPPED AT APPROXAMATLY 1400 IN PREPERATION FOR AIRFLIGHT ATTENDANTS SUPERVISOR PROCEEDURE. MALONEY PLACED PER AIRFLIGHT ATTENDANTS SUPERVISOR ORDER. UA SENT TO LAB PER POLICY. PT ALERT AND ORIENTED X4, INDEPENDENT IN ROOM, ON RA, MEDS WHOLE. PT ON TELE WITH REPORT FROM REAL ESTATE ASSESSOR OF AFIB AT 60-70.
--- NOTE | 2021-04-20 18:32 | NUR ---
END OF SHIFT NOTE: PATIENT ARRIVED FROM HEAD KILN OPERATOR, 18CC IN TR BAND, HEAD KILN OPERATOR CONFIRMED WITH DR. JURADO 15CC IN PLACE. 1 MORE CC WAS REMOVED DUE TO PAIN, AFIB HAS HAD INTERMITTENT CHEST PAIN 2-3 SELF RESOLVING BEFORE ARRIVAL TO UNIT, BLOOD PRESSURE 130/60-70'S, ND HIGH 40'S-60.. RA, MALONEY DRAINING TO GRAVITY. VITALS WITHIN PATIENT NORMAL RANGE.
--- NOTE | 2021-04-20 21:33 | NUR ---
ASSUMED CARE OF PT AT 1900. A/OX4. MAINTAINING ABOVE 95% ON RA. REPORTS NO PAIN OR CP/PRESSURE.TELE AFIB 60'S. RADIAL PULSES WEAK +1 BL, SAME WITH PEDALS. COOL SKIN. VSS. R RADIAL SITE WITH TR BAND IN PLACE. DEFLATING PER PROTOCOL AND WATCHING FOR ANY BLEEDING. URINARY CATHETER IN PLACE DRAINING CLEAR/YELLOW URINE. WILL UPDATE CHANGES OCCUR.
[2021-04-21 03:40] LABS: BASOPHILS ABSOLUTE AUTO 0.04 K/mm3 (0.00-0.23); BASOPHILS PERCENT AUTO 1 % (0-2); EOSINOPHILS ABSOLUTE AUTO 0.16 K/mm3 (0.00-0.68); EOSINOPHILS PERCENT AUTO 3 % (0-6); Hematocrit 39.7 % (33.0-51.0); Hemoglobin 13.3 g/dL (11.5-16.0); IMMATURE GRAN ABSOLUTE AUTO 0.01 K/mm3 (0.00-0.10); IMMATURE GRAN PERCENT AUTO 0 % (0-1); LYMPHOCYTES PERCENT AUTO 33 % (21-46); MONOCYTES ABSOLUTE AUTO 0.73 K/mm3 (0.16-1.47); MONOCYTES PERCENT AUTO 12 % (4-13); Mean Corpuscular HGB 31.5 pg (26.0-34.0); Mean Corpuscular HGB Conc 33.5 g/dL (31.5-36.5); Mean Corpuscular Volume 94 fL (80-100); Mean Platelet Volume 10.2 fL (9.1-12.4); NEUTROPHILS ABSOLUTE AUTO 3.17 K/mm3 (1.96-9.15); NEUTROPHILS PERCENT AUTO 52 % (41-73); Platelet Count 206 K/mm3 (150-400); RDW Coefficient Variation 12.6 % (11.7-14.2); RDW Standard Deviation 43.6 fL (35.1-46.3); Red Blood Cell Count 4.22 M/mm3 (3.80-5.20); White Blood Cell Count 6.11 K/mm3 (4.00-11.30)
[2021-04-21 03:51] LABS: International Normalized Ratio 1.41; Prothrombin Time Results 14.5 Sec (9.7-11.5)
[2021-04-21 03:57] LABS: Albumin, Blood 3.1 g/dL (3.4-5.0); Anion Gap 6 mmol/L (6-16); Blood Urea Nitrogen 21 mg/dL (8-24); Bun/Creatinine Ratio 22.8 (12.0-20.0); CO2, Blood 25 mmol/L (21-32); Calcium, Blood 8.5 mg/dL (8.5-10.1); Chloride, Blood 109 mmol/L (98-108); Creatinine, Blood 0.92 mg/dL (0.40-1.00); Glomerular Filtration Rate 58 (60-); Glucose, Blood 87 mg/dL (70-99); Magnesium, Blood 2.1 mg/dL (1.6-2.4); Phosphorus, Blood 3.4 mg/dL (2.5-4.9); Potassium, Blood 4.2 mmol/L (3.5-5.5); Sodium, Blood 140 mmol/L (136-145)
--- NOTE | 2021-04-21 14:30 | NUR ---
DC INSTRUCTIONS PROVIDED TO PATIENT REGARDING ANGIO, WRIST SITE, CP, FOLLOWUP CARE, PCP APPOINTMENTS, MEDS, ETC. PT STATES UNDERSTANDING. VSS. MALONEY REMOVED, PT VOIDED POST REMOVAL. IV REMOVED. PT AWAITING DAUGHTER TO PICK HER UP CURRENTLY.
--- NOTE | 2021-04-23 14:06 | NUR ---
Patient discharged 04/21/2021 back home to [facility]. Pt scheduled for a hospital follow-up appointment with Dr. Oro at [facility] on 04/24/2021 at 09:40AM.
== END 2021-04-21 15:00 | disposition home or self-care (01) | DRG 287 ==
LOC: ER 09:17 → MEDS 09:18 → PCU 04-20 16:34
PROVIDERS: Emergency Medicine; Internal Medicine Cardiovascular Disease; ADMIT Family Medicine
PROC: 4A023N7 Measurement of Cardiac Sampling and Pressure, Left Heart, Percutaneous Approach (ICD-10-PCS; principal; 2021-04-20)
PROC: B2111ZZ Fluoroscopy of Multiple Coronary Arteries using Low Osmolar Contrast (ICD-10-PCS; 2021-04-20)
DX: R07.89 Other chest pain (principal); I48.20 Chronic atrial fibrillation, unspecified; Z20.822 Contact with and (suspected) exposure to COVID-19; R94.39 Abnormal result of other cardiovascular function study; F03.90 Unspecified dementia, unspecified severity, without behavioral disturbance, psychotic disturbance, mood disturbance, and anxiety; I08.1 Rheumatic disorders of both mitral and tricuspid valves; I10 Essential (primary) hypertension; E03.9 Hypothyroidism, unspecified; H40.9 Unspecified glaucoma; M19.90 Unspecified osteoarthritis, unspecified site; Z90.89 Acquired absence of other organs; Z90.49 Acquired absence of other specified parts of digestive tract; Z98.890 Other specified postprocedural states; Z88.5 Allergy status to narcotic agent; Z91.09 Other allergy status, other than to drugs and biological substances; Z88.1 Allergy status to other antibiotic agents; Z88.8 Allergy status to other drugs, medicaments and biological substances; Z79.01 Long term (current) use of anticoagulants; Z79.82 Long term (current) use of aspirin; Z79.899 Other long term (current) drug therapy
CPT/HCPCS: 0241U; 36415; 71045; 76937; 80053; 80069; 82330; 83735; 83880; 84484; 85025; 85379; 85610; 85730; 93005; 93010; 93454; 96374; 96375; 96376; 99152; 99285-25; A9270; C1769; C1894; G0378; J1644; J2250; J3010; J7030; J7050; Q9967

== ENCOUNTER → 2021-04-24 | Outpatient (CLI) | payer MEDICARE, BC ==
[~2021-04-24] MED LIST changes: +ISOSORBIDE MONO30 MG PO
== END | disposition home or self-care (01) ==
LOC: LAB SHORT 10:25
DX: N39.0 Urinary tract infection, site not specified (principal)
CPT/HCPCS: 87077; 87086; 87186

== ENCOUNTER → 2021-05-30 | Outpatient (CLI) | payer MEDICARE, BC | END | disposition home or self-care (01) | LOC: LAB SHORT 12:52 | DX: R30.9 Painful micturition, unspecified (principal) | CPT/HCPCS: 87086 ==

== ENCOUNTER → 2021-08-14 | Outpatient (CLI) | payer MEDICARE, BC ==
[2021-08-15 19:08] LABS: HPV 16 Negative (Negative); HPV 18 Negative (Negative); HPV OTHER HR TYPES Negative (Negative)
== END | disposition home or self-care (01) ==
LOC: LAB 15:17 → LAB SHORT 15:17
PROVIDERS: Obstetrics & Gynecology
DX: Z01.419 Encounter for gynecological examination (general) (routine) without abnormal findings (principal); N93.9 Abnormal uterine and vaginal bleeding, unspecified
CPT/HCPCS: 87624; G0123

== ENCOUNTER → 2021-09-18 | Outpatient (CLI) | payer MEDICARE, BC ==
[2021-09-18 11:34] LABS: Source, Urine Clean Catch
[2021-09-18 13:17] LABS: Appearance, Urine Clear (Clear); Bilirubin, Urine Neg (Neg); Blood, Urine 2+ (Neg); Color, Urine Yellow (P-Yellow); Glucose Qualitative, Urine Neg (Neg); Ketones, Urine Neg (Neg); Leukocyte Esterase, Urine 1+ (Neg); Nitrite, Urine Neg (Neg); Protein, Urine 3+ (Neg); Urobilinogen, Urine NORM (Normal)
[2021-09-18 13:58] LABS: Red Blood Cells, Urine 0-2 /hpf (0-2)
[2021-09-18 14:00] LABS: Squamous Epithelial Cells Few /hpf (Few)
[2021-09-18 14:01] LABS: Bacteria Mod /hpf; Mucus Heavy (0-Heavy); Renal Epithelial Few /hpf (0-Rare); Transitional Epithelial Cells Rare /hpf (0-Rare)
== END | disposition home or self-care (01) ==
LOC: LAB 11:30 → LAB SHORT 11:30
PROVIDERS: Obstetrics & Gynecology
DX: R30.9 Painful micturition, unspecified (principal)
CPT/HCPCS: 81001; 87086

== ENCOUNTER → 2021-09-21 | Outpatient (CLI) | payer MEDICARE, BC ==
[2021-09-21 14:12] LABS: Adenovirus F 40/41 Not Detected (NOT DETECT); Astrovirus Not Detected (NOT DETECT); Campylobacter Sp Not Detected (NOT DETECT); Cryptosporidium Not Detected (NOT DETECT); Cyclospora Cayetanensis Not Detected (NOT DETECT); E. Coli O157 Not Detected (NOT DETECT); Entamoeba Histolytica Not Detected (NOT DETECT); Enteroaggregative E. coli-EAEC Not Detected (NOT DETECT); Enteropathogenic E. coli-EPEC Not Detected (NOT DETECT); Enterotoxigenic E. coli-ETEC Not Detected (NOT DETECT); Giardia Lamblia Not Detected (NOT DETECT); Norovirus GI/GII Not Detected (NOT DETECT); Plesiomonas Shigelloides Not Detected (NOT DETECT); Rotavirus A Not Detected (NOT DETECT); Salmonella Sp Not Detected (NOT DETECT); Sapovirus Not Detected (NOT DETECT); Shiga Toxin-prod E. coli-STEC Not Detected (NOT DETECT); Shigella/Enteroin E. coli-EIEC Not Detected (NOT DETECT); Vibrio Cholerae Not Detected (NOT DETECT); Vibrio Sp Not Detected (NOT DETECT); Yersinia Enterocolitica Not Detected (NOT DETECT)
== END | disposition home or self-care (01) ==
LOC: LAB SHORT 08:35 → LAB 08:35
PROVIDERS: Family Medicine
DX: A06.1 Chronic intestinal amebiasis (principal); R10.9 Unspecified abdominal pain; R19.7 Diarrhea, unspecified
CPT/HCPCS: 87507

== ENCOUNTER 2021-12-03 12:06 | Observation (INO) | payer MEDICARE, OTHER ==
[~2021-12-03] VITALS: Ht 170.2 cm; Wt 70.2 kg
[2021-12-03 12:32] LABS: Source, Urine Clean Catch
[2021-12-03 12:33] LABS: BASOPHILS ABSOLUTE AUTO 0.04 K/mm3 (0.00-0.23); BASOPHILS PERCENT AUTO 1 % (0-2); EOSINOPHILS ABSOLUTE AUTO 0.12 K/mm3 (0.00-0.68); EOSINOPHILS PERCENT AUTO 1 % (0-6); Hematocrit 41.4 % (33.0-51.0); Hemoglobin 13.7 g/dL (11.5-16.0); IMMATURE GRAN ABSOLUTE AUTO 0.01 K/mm3 (0.00-0.10); IMMATURE GRAN PERCENT AUTO 0 % (0-1); LYMPHOCYTES ABSOLUTE AUTO 2.83 K/mm3 (0.84-5.20); LYMPHOCYTES PERCENT AUTO 34 % (21-46); MONOCYTES ABSOLUTE AUTO 0.79 K/mm3 (0.16-1.47); MONOCYTES PERCENT AUTO 9 % (4-13); Mean Corpuscular HGB 32.2 pg (26.0-34.0); Mean Corpuscular HGB Conc 33.1 g/dL (31.5-36.5); Mean Corpuscular Volume 97 fL (80-100); NEUTROPHILS ABSOLUTE AUTO 4.57 K/mm3 (1.96-9.15); NEUTROPHILS PERCENT AUTO 55 % (41-73); Platelet Count 217 K/mm3 (150-400); RDW Coefficient Variation 12.3 % (11.7-14.2); RDW Standard Deviation 43.8 fL (35.1-46.3); Red Blood Cell Count 4.26 M/mm3 (3.80-5.20); White Blood Cell Count 8.36 K/mm3 (4.00-11.30)
[2021-12-03 12:47] LABS: Appearance, Urine Clear (Clear); Bilirubin, Urine Neg (Neg); Blood, Urine Neg (Neg); Color, Urine Yellow (P-Yellow); Glucose Qualitative, Urine Neg (Neg); Ketones, Urine Neg (Neg); Leukocyte Esterase, Urine Neg (Neg); Nitrite, Urine Neg (Neg); Protein, Urine Neg (Neg); Urobilinogen, Urine NORM (Normal); pH, Urine 6.5 (5.0-8.0)
[2021-12-03 12:50] LABS: Albumin, Blood 3.7 g/dL (3.4-5.0); Albumin/Globulin Ratio 1.2 (0.8-1.8); Bilirubin, Total 0.4 mg/dL (0.1-1.0); Calcium, Blood 9.2 mg/dL (8.5-10.1); Creatinine, Blood 1.5 mg/dL (0.40-1.00); Globulin, Blood 3.1 g/dL (2.2-4.0); Potassium, Blood 5.1 mmol/L (3.5-5.5); Total Protein, Blood 6.8 g/dL (6.4-8.2)
[2021-12-03 13:56] LABS: International Normalized Ratio 2.82; Prothrombin Time Results 27.7 Sec (9.7-11.5)
[2021-12-04 04:46] LABS: International Normalized Ratio 2.76; Prothrombin Time Results 27.1 Sec (9.7-11.5)
--- NOTE | 2021-12-04 13:16 | NUR ---
Upon receiving a referral for spiritual care, I visit pt. Pt's dtr, Harriet, is present in pt's rm. Pt immediately tells me about her long medical history, her family history and about the people and activities that meaningful to her. Her spouse, Conrado, has recently lost his sight completely and she is very concerned about how he is getting along without her. She states that she has solid family support and is hopeful about her health moving forward. I provide therapeutic listening and gentle field counsel. I will continue to remain available to pt and family.
--- NOTE | 2021-12-04 17:46 | NUR ---
SHIFT SUMMARY PT HAS BEEN RESTING IN BED SINCE ARRIVING ON UNIT FROM ED. PT SLEPT FOR SEVERAL HOURS IN THE AFTERNOON. PT HAS COMPLAINED OF MINOR SHORTNESS OF BREATH WITH BREATH SOUNDS CLEAR TO AUSCULTATION. HEART RATE HAS MAINTAINED 50-60'S IN ATRIAL FIBRILLATION. SBP MEASURED 144 THIS AM AND FELL TO 116 THIS PM ONCE MEDICATIONS WERE RESUMED. PT HAS COMPLAINED OF 3/10 EPIGASTRIC DISCOMFORT THAT IS TENDER TO PALPATION.
[2021-12-05 06:22] LABS: Bun/Creatinine Ratio 33.3 (12.0-20.0); Calcium, Blood 8.6 mg/dL (8.5-10.1); Creatinine, Blood 0.96 mg/dL (0.40-1.00); Potassium, Blood 4.8 mmol/L (3.5-5.5)
--- NOTE | 2021-12-05 06:48 | NUR ---
SHIFT SUMMARY NO ACUTE CHANGES THIS SHIFT. PT ALERT, FOLLOWS COMMANDS. SP02 DESAT TO 80'S OCCASIONALLY WHILE SLEEPING, BUT WOULD COME BACK UP TO HIGH 90'S QUICKLY AFTER. PT HR MAGAN TO 30'S FREQUENTLY DURING NOC. TELEMETRY CALLED TO NOTIFY OF 2 SECOND PAUSES. PT DENIES DIZZINESS OR CP. PT UP TO BSC TO VOID, NO BM THIS SHIFT. FLUIDS INFUSED PER EMAR. PT REMAINS NO CAFFIENE FOR STRESS TEST IN AM. LAB CALLED THIS AM W/ CRITICAL INR: 5.89. CALL PLACED TO MD MONTE. MD MONTE W/ ORDERS TO NOTIFY PHARMACY TO MANAGE/ADJUST COUMADIN. CALL LIGHT IN REACH. PT SLEEPING IN ROOM.
[2021-12-05 11:11] LABS: International Normalized Ratio 5.89; Prothrombin Time Results 55.1 Sec (9.7-11.5)
[2021-12-05 11:18] LABS: BASOPHILS ABSOLUTE AUTO 0.02 K/mm3 (0.00-0.23); BASOPHILS PERCENT AUTO 0 % (0-2); EOSINOPHILS ABSOLUTE AUTO 0.02 K/mm3 (0.00-0.68); EOSINOPHILS PERCENT AUTO 0 % (0-6); Hemoglobin 13.3 g/dL (11.5-16.0); IMMATURE GRAN ABSOLUTE AUTO 0.03 K/mm3 (0.00-0.10); IMMATURE GRAN PERCENT AUTO 0 % (0-1); LYMPHOCYTES ABSOLUTE AUTO 2.18 K/mm3 (0.84-5.20); LYMPHOCYTES PERCENT AUTO 19 % (21-46); MONOCYTES ABSOLUTE AUTO 1.08 K/mm3 (0.16-1.47); MONOCYTES PERCENT AUTO 9 % (4-13); Mean Corpuscular HGB 31.9 pg (26.0-34.0); Mean Corpuscular HGB Conc 33.3 g/dL (31.5-36.5); Mean Corpuscular Volume 96 fL (80-100); Mean Platelet Volume 10.3 fL (9.1-12.4); NEUTROPHILS PERCENT AUTO 71 % (41-73); Platelet Count 224 K/mm3 (150-400); RDW Coefficient Variation 12.2 % (11.7-14.2); RDW Standard Deviation 42.6 fL (35.1-46.3); Red Blood Cell Count 4.17 M/mm3 (3.80-5.20); White Blood Cell Count 11.53 K/mm3 (4.00-11.30)
--- NOTE | 2021-12-05 17:03 | NUR ---
SHIFT SUMMARY PT HAS BEEN RESTING IN ROOM, THEY SLEPT FOR A FEW HOURS IN THE MIDDLE OF THE DAY. PT HAS CONTINUED TO COMPLAIN OF EPIGASTRIC DISCOMFORT AND A "BUBBLY STOMACH." HEART RATE HAS MAINTAINED IN THE 50'S-60'S. PT WAS ABLE TO TRANSFER TO BEDSIDE COMMODE AND BACK TO BED INDEPENDENTLY ONCE IV INFUSION WAS DISCONTINUED. PT DENIED ANY EPISODES OF DIZZINESS OR LIGHTHEADEDNESS TODAY.
--- NOTE | 2021-12-05 19:22 | NUR ---
CARE ASSUMPTION: PATIENT READING IN BED. REQUESTED MAALOX FOR STOMACH. PATIENT ASKED IF THERE WERE RESULTS FROM HER SCAN YET. RESULTS HAVE NOT POSTED AT THIS TIME. BED LOW WITH CALL LIGHT IN REACH.
[2021-12-06 04:10] LABS: BASOPHILS ABSOLUTE AUTO 0.05 K/mm3 (0.00-0.23); BASOPHILS PERCENT AUTO 1 % (0-2); EOSINOPHILS ABSOLUTE AUTO 0.14 K/mm3 (0.00-0.68); EOSINOPHILS PERCENT AUTO 2 % (0-6); Hematocrit 44.6 % (33.0-51.0); Hemoglobin 14.9 g/dL (11.5-16.0); IMMATURE GRAN ABSOLUTE AUTO 0.02 K/mm3 (0.00-0.10); IMMATURE GRAN PERCENT AUTO 0 % (0-1); LYMPHOCYTES ABSOLUTE AUTO 3.25 K/mm3 (0.84-5.20); LYMPHOCYTES PERCENT AUTO 36 % (21-46); MONOCYTES ABSOLUTE AUTO 0.86 K/mm3 (0.16-1.47); MONOCYTES PERCENT AUTO 10 % (4-13); Mean Corpuscular HGB 32.1 pg (26.0-34.0); Mean Corpuscular HGB Conc 33.4 g/dL (31.5-36.5); Mean Corpuscular Volume 96 fL (80-100); NEUTROPHILS ABSOLUTE AUTO 4.76 K/mm3 (1.96-9.15); NEUTROPHILS PERCENT AUTO 52 % (41-73); Platelet Count 227 K/mm3 (150-400); RDW Coefficient Variation 12.3 % (11.7-14.2); RDW Standard Deviation 43.8 fL (35.1-46.3); Red Blood Cell Count 4.64 M/mm3 (3.80-5.20); White Blood Cell Count 9.08 K/mm3 (4.00-11.30)
[2021-12-06 04:32] LABS: Albumin, Blood 3.4 g/dL (3.4-5.0); Bilirubin, Total 0.5 mg/dL (0.1-1.0); Bun/Creatinine Ratio 34.8 (12.0-20.0); Calcium, Blood 9.1 mg/dL (8.5-10.1); Creatinine, Blood 1.15 mg/dL (0.40-1.00); Globulin, Blood 3.4 g/dL (2.2-4.0); Potassium, Blood 4.6 mmol/L (3.5-5.5); Total Protein, Blood 6.8 g/dL (6.4-8.2)
--- NOTE | 2021-12-06 05:18 | NUR ---
SHIFT SUMMARY: PATIENT VS WNL T/O SHIFT. MEDICATED PER EMAR. DENIES N/V/D, SOB, OR CHEST PAIN. COMPLAINT OF EPIGASTRIC PAIN X1. PATIENT NPO THIS AM IN PREPARATION FOR POSSIBLE CARDIAC PROCEDURE. PATIENT IN BED WITH CALL LIGHT IN REACH. WILL CONTINUE TO MONITOR AND REPORT TO ONCOMING RN.
[2021-12-06 05:37] LABS: Prothrombin Time Results 42.5 Sec (9.7-11.5)
[2021-12-06 05:58] LABS: International Normalized Ratio 4.46
[2021-12-06] MEDS ORDERED: ALUM-MAG HYDROX30 ML PO (11:28)
[2021-12-06] MEDS ORDERED: SUCR1 PO (11:29)
[2021-12-06] MEDS ORDERED: WARF2.5 PO (11:45)
--- NOTE | 2021-12-06 12:22 | NUR ---
DISCHARGE SUMMARY PT WAS TRANSPORTED BY WHEELCHAIR TO [facility]AFF. ALL PERSONAL BELONGINGS AND DISCHARGE INSTRUCTIONS WERE IN THE PT'S POSSESSION AT TIME OF TRANSPORT. QUESTIONS AND CONCERNS WERE ADDRESSED PRIOR TO DISCHARGE AND PT EXPRESSED DESIRE TO BRING UP CONCERNS WITH PCP AT THEIR NEXT APPOINTMENT.
== END 2021-12-06 12:17 | disposition home or self-care (01) ==
LOC: ER 12:06 → ERHOLD 12:07 → PCU 12:07 → ERHOLD 12:07 → PCU 12-04 08:21
PROVIDERS: Emergency Medicine; Hospitalist; Internal Medicine Cardiovascular Disease; ADMIT Family Medicine
DX: R00.1 Bradycardia, unspecified (principal); I10 Essential (primary) hypertension; E03.9 Hypothyroidism, unspecified; F03.90 Unspecified dementia, unspecified severity, without behavioral disturbance, psychotic disturbance, mood disturbance, and anxiety; I48.19 Other persistent atrial fibrillation; I27.20 Pulmonary hypertension, unspecified; Z66 Do not resuscitate; N39.0 Urinary tract infection, site not specified; Z79.01 Long term (current) use of anticoagulants; T46.5X5A Adverse effect of other antihypertensive drugs, initial encounter; K21.9 Gastro-esophageal reflux disease without esophagitis; T45.515A Adverse effect of anticoagulants, initial encounter; K74.60 Unspecified cirrhosis of liver; N83.209 Unspecified ovarian cyst, unspecified side; R42 Dizziness and giddiness; R11.0 Nausea; R20.2 Paresthesia of skin; R10.13 Epigastric pain; Z88.5 Allergy status to narcotic agent; Z88.1 Allergy status to other antibiotic agents
CPT/HCPCS: 71045; 74177; 78452; 80048; 80053; 81003; 83880; 84443; 84484; 85025; 85610; 93005; 93010; 93017; 93306; 94762; 96374; 99285-25; A9270; A9500; C1751; G0378; J0280; J1940; J2785; Q9967

== ENCOUNTER 2022-03-30 11:21 | Emergency (ER) | payer OTHER ==
[~2022-03-30] VITALS: Ht 170.2 cm; Wt 72.6 kg
[~2022-03-30 11:21] MED LIST changes: +ALUM-MAG HYDROX30 ML PO; +DILT180 PO; +IBUP600 PO; +SUCR1 PO
[2022-03-30 12:20] LABS: BASOPHILS ABSOLUTE AUTO 0.02 K/mm3 (0.00-0.23); BASOPHILS PERCENT AUTO 1 % (0-2); EOSINOPHILS ABSOLUTE AUTO 0.03 K/mm3 (0.00-0.68); EOSINOPHILS PERCENT AUTO 1 % (0-6); Hematocrit 39.4 % (33.0-51.0); Hemoglobin 13.6 g/dL (11.5-16.0); IMMATURE GRAN ABSOLUTE AUTO 0.01 K/mm3 (0.00-0.10); IMMATURE GRAN PERCENT AUTO 0 % (0-1); LYMPHOCYTES ABSOLUTE AUTO 1.42 K/mm3 (0.84-5.20); LYMPHOCYTES PERCENT AUTO 33 % (21-46); MONOCYTES ABSOLUTE AUTO 0.52 K/mm3 (0.16-1.47); MONOCYTES PERCENT AUTO 12 % (4-13); Mean Corpuscular HGB 32.7 pg (26.0-34.0); Mean Corpuscular HGB Conc 34.5 g/dL (31.5-36.5); Mean Corpuscular Volume 95 fL (80-100); Mean Platelet Volume 9.1 fL (9.1-12.4); NEUTROPHILS ABSOLUTE AUTO 2.29 K/mm3 (1.96-9.15); NEUTROPHILS PERCENT AUTO 53 % (41-73); Platelet Count 220 K/mm3 (150-400); RDW Coefficient Variation 11.9 % (11.7-14.2); RDW Standard Deviation 41.2 fL (35.1-46.3); Red Blood Cell Count 4.16 M/mm3 (3.80-5.20); White Blood Cell Count 4.29 K/mm3 (4.00-11.30)
[2022-03-30 12:42] LABS: Albumin, Blood 3.3 g/dL (3.4-5.0); Albumin/Globulin Ratio 0.9 (0.8-1.8); Bilirubin, Total 0.3 mg/dL (0.1-1.0); Bun/Creatinine Ratio 26.2 (12.0-20.0); Calcium, Blood 8.5 mg/dL (8.5-10.1); Creatinine, Blood 0.99 mg/dL (0.40-1.00); Globulin, Blood 3.7 g/dL (2.2-4.0); Potassium, Blood 4.2 mmol/L (3.5-5.5)
== END 2022-03-30 18:43 | disposition home or self-care (01) ==
LOC: ER 11:21
PROVIDERS: Student in an Organized Health Care Education/Training Program
DX: U07.1 COVID-19 (principal); I11.0 Hypertensive heart disease with heart failure; I50.9 Heart failure, unspecified; I48.91 Unspecified atrial fibrillation; E03.9 Hypothyroidism, unspecified; Z88.5 Allergy status to narcotic agent; Z88.1 Allergy status to other antibiotic agents; Z88.8 Allergy status to other drugs, medicaments and biological substances; Z91.048 Other nonmedicinal substance allergy status; Z79.899 Other long term (current) drug therapy; Z79.01 Long term (current) use of anticoagulants; Z66 Do not resuscitate
CPT/HCPCS: 36415; 71045; 80053; 84484; 85025; 93005; 93010; J1885; J2405; J7030

== ENCOUNTER 2022-07-26 11:06 | Emergency (ER) | payer OTHER ==
[~2022-07-26] VITALS: Ht 170.2 cm; Wt 69.0 kg
[~2022-07-26 11:06] MED LIST changes: -OMEP20ER PO; +PANT20 PO
[2022-07-26] MEDS ORDERED: FAMO20 PO (12:27)
[2022-07-26] MEDS ORDERED: HYDR1TAB94 PO (12:33)
[2022-07-26] MEDS ORDERED: TRIM100 PO (12:33)
[2022-07-26] MEDS ORDERED: LOPE2C (12:34)
[2022-07-26] MEDS ORDERED: NITR.4SL SL (12:34)
[2022-07-26] MEDS ORDERED: MIRALAX17 GM (12:35)
[2022-07-26] MEDS ORDERED: ONDA4ODT MM (12:35)
[2022-07-26] MEDS ORDERED: SENN187 PO (12:35)
[2022-07-26 12:50] LABS: BASOPHILS ABSOLUTE AUTO 0.03 K/mm3 (0.00-0.23); BASOPHILS PERCENT AUTO 0 % (0-2); EOSINOPHILS ABSOLUTE AUTO 0.11 K/mm3 (0.00-0.68); EOSINOPHILS PERCENT AUTO 2 % (0-6); Hematocrit 42.7 % (33.0-51.0); Hemoglobin 14.9 g/dL (11.5-16.0); IMMATURE GRAN ABSOLUTE AUTO 0.03 K/mm3 (0.00-0.10); IMMATURE GRAN PERCENT AUTO 0 % (0-1); LYMPHOCYTES ABSOLUTE AUTO 2.09 K/mm3 (0.84-5.20); LYMPHOCYTES PERCENT AUTO 29 % (21-46); MONOCYTES ABSOLUTE AUTO 0.61 K/mm3 (0.16-1.47); MONOCYTES PERCENT AUTO 9 % (4-13); Mean Corpuscular HGB 32.5 pg (26.0-34.0); Mean Corpuscular HGB Conc 34.9 g/dL (31.5-36.5); Mean Corpuscular Volume 93 fL (80-100); NEUTROPHILS ABSOLUTE AUTO 4.27 K/mm3 (1.96-9.15); NEUTROPHILS PERCENT AUTO 60 % (41-73); NRBC ABSOLUTE 0.02 K/mm3 (0.00-0.02); NRBC Auto 0.3 /100 WBC (0.0-0.2); Platelet Count 169 K/mm3 (150-400); RDW Coefficient Variation 11.8 % (11.7-14.2); RDW Standard Deviation 40.1 fL (35.1-46.3); Red Blood Cell Count 4.58 M/mm3 (3.80-5.20); White Blood Cell Count 7.14 K/mm3 (4.00-11.30)
[2022-07-26 15:53] VITALS: BP 141/58
== END 2022-07-26 17:01 | disposition home or self-care (01) ==
LOC: ER 11:06
PROVIDERS: Physician Assistant
DX: R05.9 Cough, unspecified (principal); Z88.5 Allergy status to narcotic agent; Z88.1 Allergy status to other antibiotic agents; Z91.048 Other nonmedicinal substance allergy status; Z79.899 Other long term (current) drug therapy; Z79.01 Long term (current) use of anticoagulants; I13.0 Hypertensive heart and chronic kidney disease with heart failure and stage 1 through stage 4 chronic kidney disease, or unspecified chronic kidney disease; E03.9 Hypothyroidism, unspecified; I48.91 Unspecified atrial fibrillation; I50.9 Heart failure, unspecified; N18.4 Chronic kidney disease, stage 4 (severe)
CPT/HCPCS: 36415; 71045; 83605; 85025; 99283-25; J7030

== ENCOUNTER 2023-03-11 09:35 | Observation (INO) | payer OTHER ==
[~2023-03-11] VITALS: Ht 170.2 cm; Wt 70.8 kg
[~2023-03-11 09:35] MED LIST changes: +ALUM-MAG HYDRO360 M1 PO; -ALUM-MAG HYDROX30 ML PO; +FAMO20 PO; +HYDR1TAB94 PO; +LATA.005SO BOTHEYES; -LATANOPROST 0.7.5 M3 BOTHEYES; +LOPE2C; +MIRALAX17 GM; +SENN187 PO; +TRIM100 PO
[2023-03-11 10:21] LABS: BASOPHILS ABSOLUTE AUTO 0.03 K/mm3 (0.00-0.23); BASOPHILS PERCENT AUTO 0 % (0-2); EOSINOPHILS ABSOLUTE AUTO 0.08 K/mm3 (0.00-0.68); EOSINOPHILS PERCENT AUTO 1 % (0-6); Hematocrit 43.1 % (33.0-51.0); Hemoglobin 14.4 g/dL (11.5-16.0); IMMATURE GRAN ABSOLUTE AUTO 0.02 K/mm3 (0.00-0.10); IMMATURE GRAN PERCENT AUTO 0 % (0-1); LYMPHOCYTES ABSOLUTE AUTO 2.21 K/mm3 (0.84-5.20); LYMPHOCYTES PERCENT AUTO 29 % (21-46); MONOCYTES ABSOLUTE AUTO 0.77 K/mm3 (0.16-1.47); MONOCYTES PERCENT AUTO 10 % (4-13); Mean Corpuscular HGB 32.7 pg (26.0-34.0); Mean Corpuscular HGB Conc 33.4 g/dL (31.5-36.5); Mean Corpuscular Volume 98 fL (80-100); Mean Platelet Volume 10.1 fL (9.1-12.4); NEUTROPHILS ABSOLUTE AUTO 4.49 K/mm3 (1.96-9.15); NEUTROPHILS PERCENT AUTO 59 % (41-73); Platelet Count 247 K/mm3 (150-400); RDW Coefficient Variation 12.3 % (11.7-14.2); RDW Standard Deviation 44.6 fL (35.1-46.3); Red Blood Cell Count 4.41 M/mm3 (3.80-5.20)
[2023-03-11 10:40] LABS: Albumin, Blood 3.6 g/dL (3.4-5.0); Bilirubin, Total 0.4 mg/dL (0.1-1.0); Bun/Creatinine Ratio 24.8 (12.0-20.0); Calcium, Blood 9.1 mg/dL (8.5-10.1); Creatinine, Blood 1.25 mg/dL (0.40-1.00); Globulin, Blood 3.6 g/dL (2.2-4.0); Potassium, Blood 4.1 mmol/L (3.5-5.5); Total Protein, Blood 7.2 g/dL (6.4-8.2)
[2023-03-11 17:23] VITALS: BP 135/65
[2023-03-11] MEDS ORDERED: SIME80CH PO (17:40)
[2023-03-11] MEDS ORDERED: DOCU100 PO (17:47)
[2023-03-11 18:12] LABS: International Normalized Ratio 2.42; Prothrombin Time Results 24.2 Sec (9.7-11.5)
--- NOTE | 2023-03-11 18:58 | NUR ---
SHIFT SUMMARY: PT IS A&OX4. NEW ADMIT FROM ER THIS EVENING. PT IS PLEASANT AND COOPERATIVE, KNOWLEGABLE ABOUT HER HEALTH HISTORY AND MEDICATIONS, BUT DID BRING A MEDICATION LIST WITH HER FROM [facility]. SHE IS A ONE-PERSON ASSIST TO THE BSC. IV TO L JANA PATENT. SHE IS LYING IN BED WITH THE CALL LIGHT IN REACH. WCTM UNTIL REPORT IS GIVEN TO CLEAN UP HELPER BANQUET RN.
[2023-03-11 20:10] VITALS: BP 140/49
--- NOTE | 2023-03-12 04:56 | NUR ---
YARN MERCERIZER OPERATOR HELPER SUMMARY VSS. BP TRENDING UP BUT WNL. MED TELE A FIB, MAGAN REPORTED IN THE E30'S AND 40'S AT TIMES. PT ASYMPTOMATIC. NO C/O CP. NPO SINCE MIDNIGHT FOR STRESS TEST SCHEDULED LATER TODAY. HAS BEEN RESTING QUIETLY OTHERWISE. CODE STATUS CHANGED FROM FULL TO DNR PER MD ORDERS PER PT REQUEST. A/O X 4. CALL LIGHT IN REACH. [facility] WILL CONTINUE TO MONITOR
[2023-03-12 05:24] LABS: BASOPHILS ABSOLUTE AUTO 0.05 K/mm3 (0.00-0.23); BASOPHILS PERCENT AUTO 1 % (0-2); EOSINOPHILS ABSOLUTE AUTO 0.12 K/mm3 (0.00-0.68); EOSINOPHILS PERCENT AUTO 2 % (0-6); Hematocrit 37.5 % (33.0-51.0); Hemoglobin 12.7 g/dL (11.5-16.0); IMMATURE GRAN ABSOLUTE AUTO 0.01 K/mm3 (0.00-0.10); IMMATURE GRAN PERCENT AUTO 0 % (0-1); LYMPHOCYTES ABSOLUTE AUTO 2.48 K/mm3 (0.84-5.20); LYMPHOCYTES PERCENT AUTO 40 % (21-46); MONOCYTES ABSOLUTE AUTO 0.67 K/mm3 (0.16-1.47); MONOCYTES PERCENT AUTO 11 % (4-13); Mean Corpuscular HGB 32.8 pg (26.0-34.0); Mean Corpuscular HGB Conc 33.9 g/dL (31.5-36.5); Mean Corpuscular Volume 97 fL (80-100); Mean Platelet Volume 10.3 fL (9.1-12.4); NEUTROPHILS ABSOLUTE AUTO 2.88 K/mm3 (1.96-9.15); NEUTROPHILS PERCENT AUTO 46 % (41-73); Platelet Count 213 K/mm3 (150-400); RDW Coefficient Variation 12.5 % (11.7-14.2); RDW Standard Deviation 44.3 fL (35.1-46.3); Red Blood Cell Count 3.87 M/mm3 (3.80-5.20); White Blood Cell Count 6.21 K/mm3 (4.00-11.30)
[2023-03-12 05:34] VITALS: BP 114/64
[2023-03-12 05:36] LABS: International Normalized Ratio 2.5; Prothrombin Time Results 24.9 Sec (9.7-11.5)
[2023-03-12 05:46] LABS: Alanine Aminotransfer (ALT/SGP 17 U/L (12-78); Albumin/Globulin Ratio 0.9 (0.8-1.8); Alk Phos 59 U/L (50-136); Anion Gap 5 mmol/L (6-16); Aspartate Aminotrans (AST/SGOT 19 U/L (12-37); Bilirubin, Total 0.3 mg/dL (0.1-1.0); Blood Urea Nitrogen 36 mg/dL (8-24); Bun/Creatinine Ratio 26.9 (12.0-20.0); CO2, Blood 26 mmol/L (21-32); Calcium, Blood 8.6 mg/dL (8.5-10.1); Chloride, Blood 109 mmol/L (98-108); Cholesterol 196 mg/dL (50-200); Creatinine, Blood 1.34 mg/dL (0.40-1.00); Globulin, Blood 3.2 g/dL (2.2-4.0); Glomerular Filtration Rate 39 (60-); Glucose, Blood 89 mg/dL (70-99); HDL Cholesterol 49 mg/dL (>39); LDL/HDL RATIO 2.5; Low Density Lipoprotein Chol 122 mg/dL (0-110); Magnesium, Blood 2.5 mg/dL (1.6-2.4); Phosphorus, Blood 3.5 mg/dL (2.5-4.9); Potassium, Blood 4.5 mmol/L (3.5-5.5); Sodium, Blood 140 mmol/L (136-145); Total Protein, Blood 6.2 g/dL (6.4-8.2); Triglycerides 123 mg/dL (30-160); Very Low Density Lipoprot Chol 24 mg/dL (6-32)
[2023-03-12 07:50] VITALS: BP 148/91
[2023-03-12 16:26] VITALS: BP 116/74
--- NOTE | 2023-03-12 16:33 | NUR ---
SHIFT SUMMARY PT AWAKE DURING SHIFT REPORT. PLEASANT AND CO-OP WITH CARE. PT NPO FOR STRESS TEST. NUC MED CALLED TO REPORT, ONE DAY PROTOCOL. PT TOLERATED WELL. UP TO BTHRM INDEPENDENTLY USING FWW. VISITORS TO TO SEE PT. PER REPORT, [facility] AND WANTING TO GO HOME TODAY. DR SALDANA REVIEWING RESULTS WITH PT AND FAMILY AT THIS TIME. CALL LT IN REACH.
== END 2023-03-12 18:44 ==
LOC: ER 09:35 → MEDS 09:36 → ER 15:56 → MEDS 17:17
PROVIDERS: Physician Assistant; ADMIT Family Medicine
DX: R07.89 Other chest pain (principal); R06.00 Dyspnea, unspecified; I48.91 Unspecified atrial fibrillation; E03.9 Hypothyroidism, unspecified; K21.9 Gastro-esophageal reflux disease without esophagitis; F03.90 Unspecified dementia, unspecified severity, without behavioral disturbance, psychotic disturbance, mood disturbance, and anxiety; I13.0 Hypertensive heart and chronic kidney disease with heart failure and stage 1 through stage 4 chronic kidney disease, or unspecified chronic kidney disease; I50.30 Unspecified diastolic (congestive) heart failure; N18.4 Chronic kidney disease, stage 4 (severe); Z88.5 Allergy status to narcotic agent; Z88.8 Allergy status to other drugs, medicaments and biological substances; Z79.899 Other long term (current) drug therapy
CPT/HCPCS: 36415; 71046; 78452; 80053; 80061; 83735; 83880; 84100; 84443; 84484; 85025; 85610; 93005; 93010; 93017; 93306; 96361; 96374; 96375; 97165; 97530; 97535; 99285-25; A9270; A9500; G0378; J0706; J1885; J2785